=== PATIENT | male | born 1995 | race African-American/Black ===

== ENCOUNTER 2019-02-19 13:07 | Emergency (ER) | payer OTHER ==
[~2019-02-19] VITALS: Ht 172.7 cm; Wt 124.7 kg
--- OUTSIDE RECORDS SUMMARY | 2019-02-19 13:10 | XMS REPORT | Summary of Care ---
Author Author [facility] Organization [facility] Address Unknown Phone Unavailable Encounter TIANA Gomez(FIN) [id number] Date(s): 09/01/17 - 09/02/17 [facility] [address] [place] [address]- [phone] Encounter Diagnosis Acute bronchitis, unspecified (Final) - 09/06/17 Acute bronchitis (Discharge Diagnosis) - 09/02/17 Discharge Disposition: Home or Self Care Attending Physician: Rebeca Joseph MD Vital Signs 1 2 3 Most recent to oldest [Reference Range]: 177.8 cm (09/01/17 7:38 PM) Height 98.3 DegF (09/02/17 2:57 AM) 98.4 DegF (09/01/17 11:56 PM) 99.0 DegF (09/01/17 7:38 PM) Temperature Oral [96.4-99.1 DegF] 137/80 mmHg (09/02/17 2:57 AM) 189/84 mmHg *HI* (09/01/17 11:56 PM) 151/85 mmHg *HI* (09/01/17 7:38 PM) Blood Pressure [90-140/60-90 mmHg] 18 BRMIN (09/02/17 2:57 AM) 20 BRMIN (09/02/17 12:10 AM) 18 BRMIN (09/01/17 11:56 PM) Respiratory Rate [14-20 BRMIN] 105 bpm *HI* (09/02/17 2:57 AM) 100 bpm (09/01/17 11:56 PM) 108 bpm *HI* (09/01/17 7:38 PM) Peripheral Pulse Rate [60-100 bpm] 104.545 kg (09/01/17 7:38 PM) Weight 33.07 m2 (09/01/17 7:38 PM) Body Mass Index Problem List No data available for this section Allergies, Adverse Reactions, Alerts Substance Reaction Severity Status NKDA Active Medications DuoNeb inhalation solution 12 mL, Route: NEB, Drug Form: SOLN, Dosing Weight 104.545, kg, ONCE, STAT, Start date: 09/01/17 23:52:00 GRINDER LAP, Stop date: 09/01/17 23:52:00 GRINDER LAP Notes: (Same as: Duoneb) Start Date: 09/01/17 Stop Date: 09/02/17 Status: Completed methylPREDNISolone SODium SUCCinate 125 mg, Route: IVP, ONCE, Dosing Weight 104.545, kg, Priority: STAT, Start date: 09/01/17 23:51:00 GRINDER LAP, Stop date: 09/01/17 23:51:00 GRINDER LAP Start Date: 09/01/17 Stop Date: 09/02/17 Status: Completed predniSONE 50 mg oral tablet 50 mg=1 tab, PO, Daily, X 5 day, # 5 tab, 0 Refill(s) Start Date: 09/02/17 Stop Date: 09/07/17 Status: Completed Promethazine DM oral syrup 5 mL, PO, Q6H, PRN for cough, X 5 day, # 90 mL, 0 Refill(s) Start Date: 09/02/17 Stop Date: 09/07/17 Status: Completed Proventil HFA 90 mcg/inh inhalation aerosol with adapter 2 puff, INHALER, Q4H, PRN wheezing, coughing, or shortness of breath, # 1 ea, 1 Refill(s) Start Date: 09/02/17 Status: Ordered Rocephin 1 gm, Route: IVPB, Drug form: PDR/INJ, ONCE, Dosing Weight 104.545, kg, Priority : STAT, Start date: 09/02/17 2:13:00 GRINDER LAP, Stop date: 09/02/17 2:13:00 GRINDER LAP, ABX I ndication: Pneumonia Start Date: 09/02/17 Stop Date: 09/02/17 Status: Completed Sodium Chloride 0.9% (Bolus) IV 1,000 mL, Infuse Over: 1 hr, Route: IV, ONCE, Priority: STAT, Dosing Weight 104. 545 kg, Start date: 09/01/17 23:51:00 GRINDER LAP, Stop date: 09/01/17 23:51:00 GRINDER LAP Start Date: 09/01/17 Stop Date: 09/02/17 Status: Completed Zithromax Z-Taz 250 mg oral tablet See Instructions, Take 2 tablets by mouth the first day then 1 tablet by mouth d ays 2-5., X 5 day, # 6 tab, 0 Refill(s) Start Date: 09/02/17 Stop Date: 09/07/17 Status: Completed Results ELECTROLYTES Most recent to 1 oldest [Reference Range]: Sodium Lvl [135-145 140 mEq/L mEq/L] (09/02/17 12:10 AM) Potassium Lvl 3.6 mEq/L [3.5-5.1 mEq/L] (09/02/17 12:10 AM) Chloride Lvl [95-109 106 mEq/L mEq/L] (09/02/17 12:10 AM) CO2 [24-32 mEq/L] 27 mEq/L (09/02/17 12:10 AM) AGAP [10.0-20.0 10.6 mEq/L mEq/L] (09/02/17 12:10 AM) CHEM PANEL Most recent to 1 oldest [Reference Range]: Creatinine Lvl 1.14 mg/dL [0.50-1.40 mg/dL] (09/02/17 12:10 AM) eGFR 91 mL/min/1.73m2 1 *NA* (09/02/17 12:10 AM) BUN [7-22 mg/dL] 15 mg/dL (09/02/17 12:10 AM) B/C Ratio [6-25] 13 (09/02/17 12:10 AM) Glucose Lvl [70-99 87 mg/dL mg/dL] (09/02/17 12:10 AM) Total Protein 7.6 g/dL [6.4-8.4 g/dL] (09/02/17 12:10 AM) Albumin Lvl [3.5-5.0 3.8 g/dL g/dL] (09/02/17 12:10 AM) Globulin [2.7-4.2 3.8 g/dL g/dL] (09/02/17 12:10 AM) A/G Ratio [0.7-1.6] 1.0 (09/02/17 12:10 AM) Calcium Lvl 8.6 mg/dL [8.5-10.5 mg/dL] (09/02/17 12:10 AM) Phosphorus [2.5-4.5 3.4 mg/dL mg/dL] (09/02/17 12:10 AM) Magnesium Lvl 2.4 mg/dL [1.8-2.4 mg/dL] (09/02/17 12:10 AM) ALT [0-65 unit/L] 67 unit/L *HI* (09/02/1710 AM) AST [0-37 unit/L] 23 unit/L (09/02/17 12:10 AM) Alk Phos [39-136 88 unit/L unit/L] (09/02/17:10 AM) Bili Total [0.2-1.3 0.2 mg/dL mg/dL] (09/02/17 12:10 AM) 1Result Comment: The eGFR is calculated using the CKD-EPI formula. In most young, healthy individuals the eGFR will be >90 mL/min/1.73m2. The eGFR declines with age. An eGFR of 60-89 may be normal in some populations, particularly the elderly, for whom the CKD-EPI formula has not been extensively validated. Use of the eGFR is not recommended in the following populations: Individuals with unstable creatinine concentrations, including patients and those with serious co-morbid conditions. Patients with extremes in muscle mass or diet. The data above are obtained from the National Kidney Disease Education Program ( NKDEP) which additionally recommends that when the eGFR is used in patients with extremes of body mass index for purposes of drug dosing, the eGFR should be mul tiplied by the estimated BMI. HEMATOLOGY Most recent to 1 oldest [Reference Range]: WBC [3.7-10.4 K/CMM] 17.3 K/CMM *HI* (09/02/17:10 AM) RBC [4.70-6.10 5.51 M/CMM M/CMM] (09/02/17 12:10 AM) Hgb [14.0-18.0 g/dL] 16.0 g/dL (09/02/17 12:10 AM) Hct [42.0-54.0 %] 47.3 % (09/02/17 12:10 AM) MCV [80.0-94.0 fL] 85.8 fL (09/02/17 12:10 AM) MCH [27.0-31.0 pg] 29.1 pg (09/02/17 12:10 AM) MCHC [32.0-36.0 33.9 g/dL g/dL] (09/02/17 12:10 AM) RDW [11.5-14.5 %] 13.7 % (09/02/17 12:10 AM) MPV [7.4-10.4 fL] 9.6 fL (09/02/17 12:10 AM) Platelet [133-450 320 K/CMM K/CMM] (09/02/17 12:10 AM) Segs [45.0-75.0 %] 54.3 % (09/02/17 12:10 AM) Lymphocytes 28.2 % [20.0-40.0 %] (09/02/17 12:10 AM) Monocytes [2.0-12.0 8.8 % %] (09/02/17 12:10 AM) Eosinophils [0.0-4.0 8.5 % %] *HI* (09/02/17 12:10 AM) Basophils [0.0-1.0 0.2 % %] (09/02/17 12:10 AM) Segs-Bands # 9.4 K/CMM [1.5-8.1 K/CMM] *HI* (09/02/17 12:10 AM) Lymphocytes # 4.9 K/CMM [1.0-5.5 K/CMM] (09/02/17 12:10 AM) Monocytes # [0.0-0.8 1.5 K/CMM K/CMM] *HI* (09/02/17 12:10 AM) Eosinophils # 1.5 K/CMM [0.0-0.5 K/CMM] *HI* (09/02/17 12:10 AM) PT [12.0-14.7 12.9 seconds seconds] (09/02/17 1:55 AM) INR [0.85-1.17] 0.97 (09/02/17 1:55 AM) PTT [22.9-35.8 28.5 seconds seconds] (09/02/17 1:55 AM) RAPID Most recent to 1 oldest [Reference Range]: Grp A Strep Scr Negative [Negative] (09/01/17 8:04 PM) VIRAL - SEROLOGY Most recent to 1 oldest [Reference Range]: Influ A [Negative] Negative (09/01/17 8:04 PM) Influ B [Negative] Negative (09/01/17 8:04 PM) Immunizations No data available for this section Procedures No data available for this section Social History Social History Type Response Smoking Status Never smoker; Exposure to Tobacco Smoke None; Cigarette Smoking Last 365 Days No; Reg Smoking Cessation Counseling No entered on: 09/02/17 Assessment and Plan No data available for this section
--- OUTSIDE RECORDS SUMMARY | 2019-02-19 13:10 | XMS REPORT | Continuity of Care Document ---
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 Role Phone [employer] Information FRESS Unavailable Unavailable Problems Problem Status Onset Date Classification Date Reported Comments Source Acute bronchitis, unspecified 09/07/2017 12/09/2017 [facility] Acute bronchitis 09/02/2017 12/09/2017 [facility] COUGH Active 09/01/2017 [facility] Medications Medication Details Route Status Patient Instructions Ordering Provider Order Date Source Promethazine DM oral syrup 5 mL, PO, Q6H, PRN for cough, X 5 day, # 90 mL, 0 Refill(s) No Longer Active 09/02/2017 [facility] {6 (Azithromycin 250 MG Oral Tablet [Zithromax]) } Pack [Z-PAKS] See Instructions, Take 2 tablets by mouth the first day then 1 tablet by mouth days 2-5., X 5 day, # 6 tab, 0 Refill(s) No Longer Active 09/02/2017 [facility] Prednisone 50 MG Oral Tablet 50 mg=1 tab, PO, Daily, X 5 day, # 5 tab, 0 Refill(s) No Longer Active 09/02/2017 [facility] 200 ACTUAT Albuterol 0.09 MG/ACTUAT Metered Dose Inhaler [Proventil] 2 puff, INHALER, Q4H, PRN wheezing, coughing, or shortness of breath, # 1 ea, 1 Refill(s) Active 09/02/2017 [facility] Rocephin 1 gm, Route: IVPB, Drug form: PDR/INJ, ONCE, Dosing Weight 104.545, kg, Priority: STAT, Start date: 09/02/17 2:13:00 BRIDGE EXPERT, Stop date: 09/02/17 2:13:00 BRIDGE EXPERT, ABX Indication: Pneumonia Inactive 09/02/2017 [facility] Albuterol 0.833 MG/ML / Ipratropium Gardners 0.167 MG/ML Inhalant Solution [DuoNeb] 12 mL, Route: NEB, Drug Form: SOLN, Dosing Weight 104.545, kg, ONCE, STAT, Start date: 09/01/17 23:52:00 BRIDGE EXPERT, Stop date: 09/01/17 23:52:00 CSTNotes: (Same as: Duoneb) No Longer Active 09/02/2017 [facility] Sodium Chloride 0.9% (Bolus) IV 1,000 mL, Infuse Over: 1 hr, Route: IV, ONCE, Priority: STAT, Dosing Weight 104.545 kg, Start date: 09/01/17 23:51:00 BRIDGE EXPERT, Stop date: 09/01/17 23:51:00 BRIDGE EXPERT No Longer Active 09/02/2017 [facility] methylPREDNISolone SODium SUCCinate 125 mg, Route: IVP, ONCE, Dosing Weight 104.545, kg, Priority: STAT, Start date: 09/01/17 23:51:00 BRIDGE EXPERT, Stop date: 09/01/17 23:51:00 BRIDGE EXPERT No Longer Active 09/02/2017 [facility] Allergies, Adverse Reactions, Alerts No Known Medication Allergies Immunizations No Data Provided for This Section Results Order Name Results Value Reference Range Date Interpretation Comments Source HEMATOLOGY PTT 28.5 22.9 - 35.8 09/02/2017 [facility] HEMATOLOGY PT 12.9 12.0 - 14.7 09/02/2017 [facility] HEMATOLOGY INR 0.97 0.85 - 1.17 09/02/2017 [facility] CHEM PANEL Magnesium Lvl 2.4 1.8 - 2.4 09/02/2017 [facility] CHEM PANEL Phosphorus 3.4 2.5 - 4.5 09/02/2017 [facility] CHEM PANEL Globulin 3.8 2.7 - 4.2 09/02/2017 [facility] CHEM PANEL A/G Ratio 1.0 0.7 - 1.6 09/02/2017 [facility] CHEM PANEL AGAP 10.6 10.0 - 20.0 09/02/2017 [facility] CHEM PANEL B/C Ratio 13 6 - 25 09/02/2017 [facility] CHEM PANEL eGFR 91 09/02/2017 Result Comment: The eGFR is calculated using the [...] from the National Kidney Disease Education Program (NKDEP) which additionally recommends that when the eGFR is used in patients with extremes of body mass index for purposes of drug dosing, the eGFR should be multiplied by the estimated BMI. [facility] CHEM PANEL Bili Total 0.2 0.2 - 1.3 09/02/2017 [facility] CHEM PANEL Calcium Lvl 8.6 8.5 - 10.5 09/02/2017 [facility] CHEM PANEL CO2 27 24 - 32 09/02/2017 [facility] CHEM PANEL Chloride Lvl 106 95 - 109 09/02/2017 [facility] CHEM PANEL Alk Phos 88 39 - 136 09/02/2017 [facility] CHEM PANEL ALT 67 0 - 65 09/02/2017 [facility] CHEM PANEL AST 23 0 - 37 09/02/2017 [facility] CHEM PANEL Albumin Lvl 3.8 3.5 - 5.0 09/02/2017 [facility] CHEM PANEL Sodium Lvl 140 135 - 145 09/02/2017 [facility] CHEM PANEL Potassium Lvl 3.6 3.5 - 5.1 09/02/2017 [facility] CHEM PANEL BUN 15 7 - 22 09/02/2017 [facility] CHEM PANEL Creatinine Lvl 1.14 0.50 - 1.40 09/02/2017 [facility] CHEM PANEL Glucose Lvl 87 70 - 99 09/02/2017 [facility] CHEM PANEL Total Protein 7.6 6.4 - 8.4 09/02/2017 [facility] HEMATOLOGY Segs-Bands # 9.4 1.5 - 8.1 09/02/2017 [facility] HEMATOLOGY Basophils 0.2 0.0 - 1.0 09/02/2017 [facility] HEMATOLOGY Segs 54.3 45.0 - 75.0 09/02/2017 [facility] HEMATOLOGY Eosinophils 8.5 0.0 - 4.0 09/02/2017 [facility] HEMATOLOGY Monocytes 8.8 2.0 - 12.0 09/02/2017 [facility] HEMATOLOGY Lymphocytes 28.2 20.0 - 40.0 09/02/2017 [facility] HEMATOLOGY Monocytes # 1.5 0.0 - 0.8 09/02/2017 [facility] HEMATOLOGY Lymphocytes # 4.9 1.0 - 5.5 09/02/2017 [facility] Eosinophils # 1.5 0.0 - 0.5 09/02/2017 [facility] MCHC 33.9 32.0 - 36.0 09/02/2017 [facility] RDW 13.7 11.5 - 14.5 09/02/2017 [facility] Platelet 320 133 - 450 09/02/2017 [facility] MPV 9.6 7.4 - 10.4 09/02/2017 [facility] Hgb 16.0 14.0 - 18.0 09/02/2017 [facility] RBC 5.51 4.70 - 6.10 09/02/2017 [facility] WBC 17.3 3.7 - 10.4 09/02/2017 [facility] MCH 29.1 27.0 - 31.0 09/02/2017 [facility] Hct 47.3 42.0 - 54.0 09/02/2017 [facility] MCV 85.8 80.0 - 94.0 09/02/2017 [facility] RAPID Grp A Strep Scr Negative (09/01/17 8:04 PM) Negative 09/02/2017 [facility] VIRAL - SEROLOGY Influ A Negative (09/01/17 8:04 PM) Negative 09/02/2017 [facility] VIRAL - SEROLOGY Influ B Negative (09/01/17 8:04 PM) Negative 09/02/2017 [facility] Pathology Reports No Data Provided for This Section Diagnostic Reports Report Value Date Source Chest Pulmonary Embolism CTA Clinical Indication: Chest pain. Tachycardia. Shortness of breath. Comparison: Chest radiographs performed 09/01/2017. TECHNIQUE: Sequential trans-axial images were obtained thru the chest and upper abdomen after administration of iodinated contrast. Coronal, and sagittal MIP reconstructions were obtained. 100 mL of Omnipaque was used for the exam. Dose: BIY=182.79 mGy-cm FINDINGS: LUNG PARENCHYMA AND PLEURA: There are patchy groundglass opacity within both lungs. There is no pleural effusion or pneumothorax. AIRWAY: The central airway is patent. MEDIASTINUM: There is an enlarged right hilar lymph node, which measures 1.9 x 1.7 cm (axial series 2, image 40). Small left hilar and mediastinal lymph nodes are noted. There is soft tissue density within the intermedius, which likely represents residual thymus. HEART: There are no significant coronary artery calcifications. The cardiac chambers are unremarkable. There is no pericardial effusion. VASCULAR STRUCTURES: There are no segmental pulmonary emboli noted. The main, right and left pulmonary arteries are within normal limits. The great vessels are unremarkable. The thoracic aorta demonstrates no aneurysmal dilatation nor aortic dissection. The superior vena cava is unremarkable. OSSEOUS STRUCTURES: There are no definite significant osseous abnormalities seen. VISUALIZED UPPER ABDOMEN: There is no acute abnormality within the visualized upper abdomen. IMPRESSION: 1. Patchy groundglass opacities within both lungs, which may represent viral or atypical pneumonitis. 2. Right hilar adenopathy, which is most likely reactive in etiology. 3. No evidence of acute pulmonary embolism. SL: [id number] 09/02/2017 [facility] Chest 2 views DX Study: CHEST, PA AND LATERAL Clinical Indication: -Chest pain, cough; Comparison: None FINDINGS: Cardiac size is normal. Central peribronchial thickening suggests bronchitis. No pneumonia, vascular congestion or pleural effusion is seen. The skeleton is normal. SL: [id number] 09/01/2017 [facility] Consultation Notes No Data Provided for This Section Discharge Summaries No Data Provided for This Section History and Physicals No Data Provided for This Section Vital Signs Vital Sign Value Date Comments Source Systolic (mm Hg) 137 09/02/2017 [facility] Diastolic (mm Hg) 80 09/02/2017 [facility] Respitory Rate 18 09/02/2017 [facility] Heart Rate 105 09/02/2017 [facility] Temperature Oral (F) 98.3 F 09/02/2017 [facility] Respitory Rate 20 09/02/2017 [facility] Systolic (mm Hg) 189 09/02/2017 [facility] Diastolic (mm Hg) 84 09/02/2017 [facility] Respitory Rate 18 09/02/2017 [facility] Temperature Oral (F) 98.4 F 09/02/2017 [facility] Heart Rate 100 09/02/2017 [facility] Weight 104.545 09/02/2017 [facility] Temperature Oral (F) 99.0 F 09/02/2017 [facility] Heart Rate 108 09/02/2017 [facility] Height 177.8 cm 09/02/2017 [facility] BMI Calculated 33.07 09/02/2017 [facility] Systolic (mm Hg) 151 09/02/2017 [facility] Diastolic (mm Hg) 85 09/02/2017 [facility] Encounters Location Location Details Encounter Type Encounter Number Reason For Visit Attending Provider ADM Date DC Date Status Source [facility] Emergency [id number] Rebeca Joseph 09/02/2017 09/02/2017 [facility] Procedures No Data Provided for This Section Assessment and Plan No Data Provided for This Section Plan of Care No Data Provided for This Section Social History Social History Date Source Social History TypeResponse Smoking Status Never smoker; Exposure to Tobacco Smoke None; Cigarette Smoking Last 365 Days No; Reg Smoking Cessation Counseling No entered on: 09/02/17 09/02/2017 [facility] Family History No Data Provided for This Section Advance Directives No Data Provided for This Section Functional Status No Data Provided for This Section
[2019-02-19] MEDS ORDERED: IBUPROFEN400 MG PO (13:41)
[2019-02-19] MEDS ORDERED: CYCLOBENZAPRINE10 MG PO (13:42)
== END 2019-02-19 13:48 | disposition home or self-care (01) ==
LOC: FSED 13:07
DX: M79.662 Pain in left lower leg (principal); S86.212A Strain of muscle(s) and tendon(s) of anterior muscle group at lower leg level, left leg, initial encounter; Y93.66 Activity, soccer
CPT/HCPCS: 99282